=== PATIENT | female | born 2000 | race Caucasian/White ===

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

== ENCOUNTER 2021-02-27 14:08 | Outpatient (CLI) | payer MEDICAID ==
--- NOTE | 2021-02-27 18:04 | Ultrasound Report ---
PROCEDURE: OB First Trimester w/TV INDICATIONS: positive test OUTSIDE/PRIOR DATING DATA: Last menstrual period (LMP): 01/03/2021. LMP-based estimated date of delivery (ARIELLA): 10/10/2021. First dating scan (date and location): 02/27/2021. Estimated date of delivery (ARIELLA) from first dating scan: 10/08/2021. TECHNIQUE: Real-time scanning was performed of the fetus and maternal pelvic organs, with image documentation. Endovaginal scanning was also performed to better visualize the fetus and maternal ovaries. COMPARISON: None. FINDINGS: Embryo: Single living intrauterine fetus is present with a crown-rump length measuring 1.68 cm, 8 we eks 1 day. heart rate measures 169 bpm. There are multiple small perigestational hemorrhages me asuring 14 x 8 x 6 mm and 11 x 4 x 8 mm Measurement variability in dating: +/- 4 weeks by LMP, +/- 7 days by mean sac diameter (use before 6 weeks gestation if crown-rump length not able to be measured), +/- 5 days by crown-rump length (6-12 weeks gestation). Maternal organs: bilateral ovarian follicles are seen measuring 32 x 18 x 22 mm on the left and 23 x 14 x 16 mm on the right. IMPRESSION: Single living intrauterine fetus with a gestational age measuring 8 weeks and 1 day with an ARIELLA of , concordant with LMP as above. Multiple perigestational bleeds Reviewed by: Nikita Dawkins MD on 02/27/2021 6:03 PM PDT Approved by: Nikita Dawkins MD on 02/27/2021 6:03 PM PDT Station ID: [id number]
== END 2021-02-27 14:09 | disposition home or self-care (01) ==
LOC: DI 14:08
PROVIDERS: ATTEND Obstetrics & Gynecology
DX: O20.8 Other hemorrhage in early pregnancy (principal); Z3A.08 8 weeks gestation of pregnancy

== ENCOUNTER 2021-03-06 08:00 | Outpatient (CLI) | payer MEDICAID ==
[2021-03-06 21:35] LABS: CHLAMYDIA TRACHOMATIS DNA NEGATIVE (NEGATIVE); NEISSERIA GONORRHOEAE DNA NEGATIVE (NEGATIVE); TRICHOMONAS VAGINALIS DNA NEGATIVE (NEGATIVE)
== END 2021-03-06 23:59 | disposition home or self-care (01) ==
LOC: LAB.WC 08:00
PROVIDERS: ATTEND Obstetrics & Gynecology
DX: Z11.3 Encounter for screening for infections with a predominantly sexual mode of transmission (principal)
CPT/HCPCS: 87491; 87591; 87661

== ENCOUNTER 2021-03-30 17:41 | Outpatient (CLI) | payer MEDICAID ==
[2021-03-30 19:44] LABS: BASOPHILS # (AUTO) 0.1 10^3/uL (0.0-0.1); BASOPHILS % (AUTO) 0.6 %; EOSINOPHILS # (AUTO) 0.1 10^3/uL (0.0-0.7); EOSINOPHILS % (AUTO) 1.3 %; HGB - HEMOGLOBIN 11.9 g/dL (12.0-16.0); LYMPHOCYTES # (AUTO) 3.3 10^3/uL (1.5-3.5); LYMPHOCYTES % (AUTO) 34.2 %; MEAN CORPUSCULAR HEMOGLOBIN 29.2 pg (27.0-31.0); MEAN CORPUSCULAR HGB CONC 33.1 g/dL (32.0-36.0); MEAN CORPUSCULAR VOLUME 88.2 fL (81.0-99.0); MEAN PLATELET VOLUME 8.8 fL (7.9-10.8); MONOCYTES # (AUTO) 0.6 10^3/uL (0.0-1.0); MONOCYTES % (AUTO) 6.6 %; NEUTROPHILS # (AUTO) 5.6 10^3/uL (1.5-6.6); NEUTROPHILS % (AUTO) 57.1 %; PLT - PLATELET COUNT 320 10^3/uL (130-450); RED BLOOD COUNT 4.08 10^6/uL (4.20-5.40); RED CELL DISTRIBUTION WIDTH 13.2 % (12.0-15.0); WHITE BLOOD COUNT 9.7 x10^3/uL (4.8-10.8)
[2021-04-01 12:17] LABS: HEPATITIS B SURFACE ANTIGEN NON-REACTIVE (NON-REACTIVE)
[2021-04-01 12:19] LABS: HEPATITIS C ANTIBODY NON-REACTIVE (NON-REACTIVE)
[2021-04-01 15:06] LABS: HIV AG/AB 4TH GEN NON-REACTIVE (NON-REACTIVE)
[2021-04-02 14:31] LABS: HSV 2 IGG TYPE SPECIFIC AB <0.90 index
== END 2021-03-30 17:42 | disposition home or self-care (01) ==
LOC: LAB 17:41
PROVIDERS: ATTEND Obstetrics & Gynecology
DX: Z36.89 Encounter for other specified antenatal screening (principal)
CPT/HCPCS: 36415; 81220; 81243; 81329; 81599; 85025; 86592; 86695; 86696; 86762; 86787; 86803; 86850; 86900; 86901; 87340; 87389

== ENCOUNTER 2021-04-03 08:00 | Outpatient (CLI) | payer MEDICAID ==
[2021-04-03 14:56] LABS: MUDS CUTOFF CONCENTRATIONS CUTOFF CONC BELOW:
[2021-04-03 15:00] LABS: BILIRUBIN,URINE NEGATIVE (NEGATIVE); GLUCOSE, URINE (UA) NEGATIVE (NEGATIVE); KETONES,URINE (UA) NEGATIVE (NEGATIVE); LEUKOCYTE ESTERASE, URINE NEGATIVE (NEGATIVE); NITRITE,URINE NEGATIVE (NEGATIVE); OCCULT BLOOD,URINE NEGATIVE (NEGATIVE); PH,URINE 6.5 PH (5.0-7.5); PROTEIN,URINE NEGATIVE (NEGATIVE); UROBILINOGEN,URINE 0.2 (NORMAL) E.U./dL (NORMAL)
[2021-04-03 15:03] LABS: CLARITY,URINE CLEAR (CLEAR)
[2021-04-03 15:06] LABS: BACTERIA,URINE Few /HPF (None Seen); MUCUS,URINE Marked Strands; RBC,URINE 0-5 /HPF (0-5); SQUAMOUS EPITHELIAL CELL,UR MOD Squamous (<= Few); WBC,URINE 0-3 /HPF (0-5)
[2021-04-03 15:09] LABS: AMPHETAMINE SCREEN,URINE NEGATIVE (NEGATIVE); BARBITURATE SCREEN,UR NEGATIVE (NEGATIVE); BENZODIAZEPINES SCREEN, URINE NEGATIVE (NEGATIVE); COCAINE SCREEN URINE NEGATIVE (NEGATIVE); METHADONE SCREEN, URINE NEGATIVE (NEGATIVE); METHAMPHETAMINES SCREEN, URINE NEGATIVE (NEGATIVE); OPIATE SCREEN, URINE NEGATIVE (NEGATIVE); OXYCODONE SCREEN, URINE NEGATIVE (NEGATIVE); PROPOXYPHENE SCREEN, URINE NEGATIVE (NEGATIVE); THC CANNABINOID SCREEN, URINE NEGATIVE (NEGATIVE); TRICYCLIC ANTIDEPRESSANT,URINE NEGATIVE (NEGATIVE)
== END 2021-04-03 23:59 | disposition home or self-care (01) ==
LOC: LAB.WC 08:00
PROVIDERS: ATTEND Obstetrics & Gynecology
DX: Z36.89 Encounter for other specified antenatal screening (principal)
CPT/HCPCS: 80306; 81001; 87086

== ENCOUNTER 2021-07-30 10:53 | Outpatient (CLI) | payer MEDICAID ==
[2021-07-30 12:38] VITALS: BP 127/79
--- NOTE | 2021-07-31 15:29 | PROCEDURE REPORT ---
- HPI Current EDU 10/10/21 Gestation 29 Weeks and 5 Days 2 Para 0 Vital Signs Temperature 99.0 F 07/30/21 11:13 Heart Rate 92 07/30/21 11:13 Respiratory Rate 16 07/30/21 11:13 Blood Pressure 121/79 07/30/21 11:13 Temperature 99.0 F 07/30/21 11:13 Heart Rate 88 07/30/21 11:13 Respiratory Rate 16 07/30/21 11:13 Blood Pressure 127/79 07/30/21 11:13 O2 Saturation - NST Procedure NST Procedure Start Date 07/30/21 Start Time 11:00 Stop Time 11:37 Vibroacoustic Stimulation Used No Patient States Movement No: not since yesterday EFM 125 mod floyd 15x15 accels no decels TOCO: quiet - Results and Plan Findings/Impression: Patient is a 21 yo at 29+5 wga here with decreased movement EFM is Category I Reassured patient and reviewed warning signs FU with routine OB care DX: IUP at 29+5 wga Decreased FM DOS: 07/30/21 NST read 07/30/21
== END 2021-07-30 11:40 | disposition home or self-care (01) ==
LOC: WFO 10:53 → FBP 10:54 → WFO 11:40
PROVIDERS: ATTEND Obstetrics & Gynecology
DX: O36.8130 Decreased fetal movements, third trimester, not applicable or unspecified (principal); Z3A.29 29 weeks gestation of pregnancy
CPT/HCPCS: 36415; 59025; 82950; 85027; 99211; 99214

== ENCOUNTER 2021-07-30 11:59 | Outpatient (CLI) | payer MEDICAID ==
[2021-07-30 13:19] LABS: HCT - HEMATOCRIT 33.5 % (37.0-47.0); MEAN CORPUSCULAR HEMOGLOBIN 28.1 pg (27.0-31.0); MEAN CORPUSCULAR HGB CONC 32.8 g/dL (32.0-36.0); MEAN CORPUSCULAR VOLUME 85.5 fL (81.0-99.0); MEAN PLATELET VOLUME 9.1 fL (7.9-10.8); RED BLOOD COUNT 3.92 10^6/uL (4.20-5.40); RED CELL DISTRIBUTION WIDTH 12.9 % (12.0-15.0); WHITE BLOOD COUNT 8.8 x10^3/uL (4.8-10.8)
== END 2021-07-30 12:00 | disposition home or self-care (01) ==
LOC: LAB 11:59
PROVIDERS: ATTEND Obstetrics & Gynecology
DX: Z34.90 Encounter for supervision of normal pregnancy, unspecified, unspecified trimester (principal)
CPT/HCPCS: 36415; 82950; 85027

== ENCOUNTER 2021-08-15 14:02 | Outpatient (CLI) | payer MEDICAID ==
--- NOTE | 2021-08-16 15:58 | Ultrasound Report ---
PROCEDURE: OB Detailed Eval INDICATIONS: SUPERVISION OF NORMAL OUTSIDE/PRIOR DATING DATA: Last menstrual period (LMP): 01/03/2021. LMP-based estimated date of delivery (ARIELLA): 10/10/2021. First dating scan (date and location): 02/27/2021. Estimated date of delivery (ARIELLA) from first dating scan: 10/08/2021. The below data below was generated using the ultrasound ARIELLA of 10/08/2021 TECHNIQUE: Real-time scanning was performed of the fetus, with image documentation and biometric measurements. COMPARISON: 02/27/2021 FINDINGS: General: A single live intrauterine gestation is present. Presentation: Vertex Placenta: Placental position is left posterior, without previa. Amniotic fluid index: 12.8 cm, within normal limits for gestational age. heart rate: 136 beats per minute. Maternal cervical canal: 4.4 cm long; normal length is 2.5 cm or more. biometrics: Biparietal diameter: 7.4 cm equals 29 weeks 4 days Head circumference: 28.4 cm equals 31 weeks 1 day Abdominal circumference: 30.4 cm equals 34 weeks 2 days Femur length: 6.1 cm equals 31 weeks 4 days Estimated gestational age from initial scan: 32 weeks 2 days Composite gestational age from present scan: 32 weeks 0 days Estimated weight and percentile: 2040 g, 54th percentile Measurement variability in biometric dating: +/- 10 days from 12-20 weeks gestation, +/- 2 weeks from 20-30 weeks gestation, +/- 3 weeks at 30 weeks gestation or later. Anatomic survey: Neuro: Ventricles are normal at less than 10 mm. Cisterna magna is normal at 3-11 mm. Cerebellum i s normal in size and morphology. Nuchal skin fold: Normal at less than 6 mm between 14 and 20 weeks gestational age. Face: Nose and lips, facial profile are normal. Spine: No evidence for spina bifida. Heart: 4-chambered heart is present, with normal ventricular outflow tracts. Diaphragm: Diaphragm is intact. Stomach: Left-sided stomach is present. Kidneys: No hydronephrosis. Normal is less than 5 mm in 2nd trimester, less than 7 mm in 3rd trimester. Cord: 3 vessel cord has orthotopic insertion. Bladder: Normal in size. Extremities: All 4 extremities are visualized. These images are suboptimal, secondary to the late gestation. IMPRESSION: No anatomic abnormality is identified. Normal interval growth compared to the prior ultrasound examination. Please note that the biparietal diameter is at the 0.6 percentile and the head circumference is 3rd p ercentile. Reviewed by: Ricki Morfin MD on 08/16/2021 2:57 PM BARBRA Approved by: Ricki Morfin MD on 08/16/2021 2:57 PM BARBRA Station ID: [id number]
== END 2021-08-15 14:03 | disposition home or self-care (01) ==
LOC: DI 14:02
PROVIDERS: ATTEND Obstetrics & Gynecology
DX: Z34.93 Encounter for supervision of normal pregnancy, unspecified, third trimester (principal); Z3A.32 32 weeks gestation of pregnancy

== ENCOUNTER 2021-08-21 08:22 | Outpatient (CLI) | payer MEDICAID | END 2021-08-21 08:23 | disposition home or self-care (01) | LOC: LAB 08:22 | PROVIDERS: ATTEND Obstetrics & Gynecology | DX: O99.810 Abnormal glucose complicating pregnancy (principal); Z53.9 Procedure and treatment not carried out, unspecified reason | CPT/HCPCS: 82951; 82952 ==

== ENCOUNTER 2021-09-12 08:00 | Outpatient (CLI) | payer MEDICAID | END 2021-09-12 23:59 | disposition home or self-care (01) | LOC: LAB.WC 08:00 | PROVIDERS: ATTEND Obstetrics & Gynecology | DX: Z34.90 Encounter for supervision of normal pregnancy, unspecified, unspecified trimester (principal); Z36.85 Encounter for antenatal screening for Streptococcus B | CPT/HCPCS: 87797 ==

== ENCOUNTER 2021-09-12 12:19 | Outpatient (CLI) | payer MEDICAID ==
[2021-09-12 12:53] LABS: HCT - HEMATOCRIT 32.8 % (37.0-47.0); HGB - HEMOGLOBIN 10.2 g/dL (12.0-16.0); MEAN CORPUSCULAR HEMOGLOBIN 26.2 pg (27.0-31.0); MEAN CORPUSCULAR HGB CONC 31.1 g/dL (32.0-36.0); MEAN CORPUSCULAR VOLUME 84.1 fL (81.0-99.0); MEAN PLATELET VOLUME 9.8 fL (7.9-10.8); RED BLOOD COUNT 3.9 10^6/uL (4.20-5.40); RED CELL DISTRIBUTION WIDTH 14.7 % (12.0-15.0); WHITE BLOOD COUNT 8.2 x10^3/uL (4.8-10.8)
[2021-09-12 13:02] LABS: ALBUMIN 2.5 g/dL (3.2-5.5); ALBUMIN/GLOBULIN RATIO 0.6 (1.0-2.2); BILIRUBIN,TOTAL 0.4 mg/dL (0.2-1.0); CREATININE 0.4 mg/dL (0.4-1.0); POTASSIUM 3.6 mmol/L (3.5-5.0); TOTAL PROTEIN 6.8 g/dL (6.7-8.2)
[2021-09-12 14:55] LABS: CREATININE,URINE 239.3 mg/dL; PROTEIN/CREATININE RATIO,URINE 0.3 (<=0.2)
[2021-09-15 15:11] LABS: CHOLIC ACID 19.1 umol/L (< OR = 1.8); DEOXYCHOLIC ACID 4.4 umol/L (< OR = 2.4); TOTAL BILE ACIDS 31.4 umol/L (< OR = 6.8)
== END 2021-09-12 12:20 | disposition home or self-care (01) ==
LOC: LAB 12:19
PROVIDERS: ATTEND Obstetrics & Gynecology
DX: O99.891 Other specified diseases and conditions complicating pregnancy (principal); R03.0 Elevated blood-pressure reading, without diagnosis of hypertension; L29.9 Pruritus, unspecified; Z36.85 Encounter for antenatal screening for Streptococcus B
CPT/HCPCS: 36415; 80053; 82542; 82570; 84156; 85027; 87797

== ENCOUNTER 2021-09-17 14:10 | Outpatient (CLI) | payer MEDICAID ==
--- NOTE | 2021-09-17 15:28 | PROCEDURE REPORT ---
- HPI Diagnosis/Indication for NST: Other (Cholestasis of ) Current EDU 10/10/21 Gestation 36 Weeks and 5 Days 2 Para 0 Vital Signs Temperature 97.9 F 09/17/21 14:21 Heart Rate 88 09/17/21 14:21 Respiratory Rate 16 09/17/21 14:21 Blood Pressure 136/92 H 09/17/21 14:21 Temperature 97.9 F 09/17/21 14:28 Heart Rate 83 09/17/21 14:28 Respiratory Rate 16 09/17/21 14:28 Blood Pressure 136/92 H 09/17/21 14:28 O2 Saturation 99 09/17/21 14:28 - NST Procedure NST Procedure Start Date 09/17/21 Start Time 14:25 Vibroacoustic Stimulation Used No Patient States Movement Yes - Results and Plan Findings/Impression: 21-year-old G1 at 36 weeks 5 days he presents for scheduled NST secondary to history of gestational hypertension and cholestasis of Baseline-130 bpm Moderate variability Accelerations 15 x 15 No decelerations [place] irritability NST reactive a reassuring BPP 8 out of 8 with NST 10 out of 10
[2021-09-17 15:35] VITALS: BP 136/86
--- NOTE | 2021-09-17 16:27 | Ultrasound Report ---
PROCEDURE: OB Biophysical Profile INDICATIONS: cholestasis OUTSIDE/PRIOR DATING DATA: Last menstrual period (LMP): January 03, 2021. LMP-based estimated date of delivery (ARIELLA): October 10, 2021. First dating scan (date and location): [facility]; February 27, 2021. Estimated date of delivery (ARIELLA) from first dating scan: October 08, 2021. The below data below was generated using the ultrasound ARIELLA of October 08, 2021 TECHNIQUE: Real-time scanning was performed of the fetus, with image documentation and biometric eugenia surements. Biophysical profile was also obtained. COMPARISON: Reference is made to prior studies dated February 27, 2021. FINDINGS: General: A single living intrauterine gestation is present. Presentation: Vertex Placenta: Placental position is the posterior, without previa. Amniotic fluid index: 12.7 cm, appropriate for gestational age. heart rate: 1-25 beats per minute. Maternal cervical canal: Not imaged. Biophysical profile: Tone: 2 points. Movement: 2 points. Respiration: 2 points. Largest pocket of fluid: 2 points. Umbilical artery Doppler RI: Up to 2.85 at the placenta. IMPRESSION: 1.Live single intrauterine gestation as detailed above. Reviewed by: Lewis Padilla MD on 09/17/2021 4:25 PM PST Approved by: Lewis Padilla MD on 09/17/2021 4:25 PM PST Station ID: [id number]
== END 2021-09-17 15:40 | disposition home or self-care (01) ==
LOC: WFO 14:10 → FBP 14:12 → WFO 15:40
PROVIDERS: ATTEND Obstetrics & Gynecology
DX: O13.3 Gestational [pregnancy-induced] hypertension without significant proteinuria, third trimester (principal); O26.613 Liver and biliary tract disorders in pregnancy, third trimester; K83.1 Obstruction of bile duct; Z3A.36 36 weeks gestation of pregnancy
CPT/HCPCS: 59025

== ENCOUNTER 2021-09-19 07:45 | Inpatient (IN) | payer MEDICAID ==
[2021-09-19] MEDS ORDERED: SODIUM CHLORIDE FLUSH 0.9% 10 ML SYRINGE IVP PRN (08:45)
[2021-09-19] MEDS ORDERED: LIDOCAINE-MPF 1% 30 ML VIAL ID PRN (08:45)
[2021-09-19] MEDS ORDERED: METHYLERGONOVINE 0.2 MG/ML VIAL IM PRN (08:45)
[2021-09-19] MEDS ORDERED: miSOPROStoL 200 MCG TABLET BC PRN (08:45)
[2021-09-19] MEDS ORDERED: CARBOPROST TROMETHAMINE 250 MCG/ML AMP IM PRN (08:45)
[2021-09-19] MEDS ORDERED: OXYTOCIN/SODIUM CHLORIDE 500 ML IV PRN (08:45)
[2021-09-19] MEDS ORDERED: OXYTOCIN 10 UNIT/ML VIAL IM PRN (08:45)
[2021-09-19] MEDS ORDERED: TRANEXAMIC ACID IN NACL 1,000 MG/100 ML BAG IV PRN (08:45)
[2021-09-19] MEDS ORDERED: SODIUM CHLORIDE FLUSH 0.9% 10 ML SYRINGE IVP SCH (09:00)
[2021-09-19] MEDS ORDERED: NALBUPHINE 10 MG/ML AMP IVP PRN ×2 (09:53→20:35)
[2021-09-19] MEDS ORDERED: miSOPROStoL 100 MCG TABLET VG SCH (10:00)
--- NOTE | 2021-09-19 10:02 | HISTORY & PHYSICAL EXAMINATION ---
Admit History - Visit Reason Visit Reason: Other (Scheduled induction of labor) - : 2 Parity: 0 : 1 Risk/History: positive: Gestational diabetes Complications This : positive: Gestational diabetes, Other (gestational diabetes, Cholestasis of ) Smoking Status: Never smoker - Mother's Labs Mother's Blood Type: positive: O Mother's RH: positive: Positive GBS: positive: Group B Step Negative Rubella Status: positive: Immune - Other Maternal History Other Maternal History: RPR negative, HSV + Meds/Allgy - Home Medications Home Medications: Ambulatory Orders Medication Instructions Recorded Confirmed No Known Home Medications 06/14/13 01/29/16 - Allergies Allergies/Adverse Reactions: Allergies Allergy/AdvReac Type Severity Reaction Status Date / Time No Known Drug Allergies Allergy Verified 01/29/16 19:15 Review of Systems - Gastrointestinal Gastrointestinal: denies: Abdominal pain Physical - Abdominal Exam Vital Signs: Last Vital Signs Temp 98.1 F 09/19/21 08:30 Pulse 82 09/19/21 08:30 Resp 18 09/19/21 08:30 BP 132/86 H 09/19/21 08:30 Pulse Ox 99 09/19/21 08:15 : none Uterine Resting Tone: positive: Soft - Monitoring Heart Rate Baseline: 140 bpm Strip Review: positive: Category I - Presentation Presentation: positive: Vertex - Vaginal Exam Membranes: positive: Membranes intact Dilation (in cm): 1 Effacement (%): 50 Station: positive: -2 Cervical Position: positive: Midposition Plan for Labor - Plan For Labor Plan for Labor: 21-year-old G2, P0 at 37 weeks 0 days admitted for induction of labor secondary to cholestasis of , gestational hypertension and gestational diabetes. 1. Cholestasis of pregnancybile acids of 30 on last exam. Patient taking ursodiol. 2. Gestational hypertensionpatient with moderate blood pressures on multiple clinic visits. Preeclampsia labs within normal limits previously, will recheck today. Blood pressure is currently within normal limits. 3. Gestational diabetes- Elevated 1 hour, patient reports she was not able to tolerate 2-hour. She has been doing fingerstick blood glucose and reports fingersticks in the 120s. Will monitor fingersticks in labor. We discussed risk of shoulder dystocia given diabetes, patient expressed understanding. 4. HSV- No active lesions, on acyclovir Induction of labor-SVE 1 thick and high Prieto bulb placed using sterile technique. Plan for Pitocin following cervical ripening
[2021-09-19 10:19] LABS: BASOPHILS # (AUTO) 0.1 10^3/uL (0.0-0.1); BASOPHILS % (AUTO) 0.7 %; EOSINOPHILS # (AUTO) 0.1 10^3/uL (0.0-0.7); EOSINOPHILS % (AUTO) 0.9 %; HCT - HEMATOCRIT 33.5 % (37.0-47.0); HGB - HEMOGLOBIN 10.5 g/dL (12.0-16.0); LYMPHOCYTES # (AUTO) 2.7 10^3/uL (1.5-3.5); LYMPHOCYTES % (AUTO) 27.8 %; MEAN CORPUSCULAR HEMOGLOBIN 26.3 pg (27.0-31.0); MEAN CORPUSCULAR HGB CONC 31.3 g/dL (32.0-36.0); MEAN PLATELET VOLUME 10.3 fL (7.9-10.8); MONOCYTES # (AUTO) 0.7 10^3/uL (0.0-1.0); MONOCYTES % (AUTO) 6.9 %; NEUTROPHILS # (AUTO) 6.1 10^3/uL (1.5-6.6); NEUTROPHILS % (AUTO) 63.4 %; PLT - PLATELET COUNT 419 10^3/uL (130-450); RED BLOOD COUNT 3.99 10^6/uL (4.20-5.40); RED CELL DISTRIBUTION WIDTH 15.6 % (12.0-15.0); WHITE BLOOD COUNT 9.6 x10^3/uL (4.8-10.8)
[2021-09-19 11:31] LABS: ALBUMIN 2.7 g/dL (3.2-5.5); ALBUMIN/GLOBULIN RATIO 0.7 (1.0-2.2); BILIRUBIN,TOTAL 0.3 mg/dL (0.2-1.0); CALCIUM 9.1 mg/dL (8.5-10.3); CREATININE 0.4 mg/dL (0.4-1.0); POTASSIUM 3.6 mmol/L (3.5-5.0); TOTAL PROTEIN 6.8 g/dL (6.7-8.2)
[2021-09-19] MEDS ORDERED: INSULIN REGULAR HUMAN 300 UNIT/3 ML VIAL SUBQ PRN (11:32)
[2021-09-19 11:54] LABS: CREATININE,URINE 231.6 mg/dL; PROTEIN/CREATININE RATIO,URINE 0.2 (<=0.2)
[2021-09-19] MEDS ORDERED: OXYTOCIN/SODIUM CHLORIDE 500 ML IV SCH (16:00)
[2021-09-19] MEDS: LACTATED RINGERS 1,000 ML IV SCH ×2 (16:20→21:45)
--- NOTE | 2021-09-19 18:31 | PROVIDER PROGRESS NOTE ---
Labor Progress Note - Uterine Monitoring Uterine Monitoring Mode: positive: External toco Contraction Frequency (min/apart): 1-2 - Monitoring Monitor Mode: positive: External ultrasound Heart Rate Baseline: 120 BPM Heart Rate Variability: positive: Moderate (6-25 bmp) Accelerations: positive: Present, 15x15 Decelerations: positive: None Strip Review: positive: Category I - Vaginal Exam Dilation (in cm): 5 Effacement (%): 50 Station: -2 Cervical Position: Midposition - Labor Progress Note Labor Progress Note/Additional Text: S- Patient reports some discomfort with contractions which she is overall comfortable. OSVE 550/-2 External monitoring reactive and reassuring positive accelerations. a/p: 21-year-old G2, P0 at 37 weeks 0 days admitted for induction of labor secondary to cholestasis of , gestational hypertension and gestational diabetes. #Induction of labor-s/p Prieto bulb, SVE 50/-2, Pitocin in progress. # Cholestasis of pregnancybile acids of 30 on last exam. Patient taking ursodiol. # Gestational hypertensionpatient with moderate blood pressures on multiple clinic visits. Preeclampsia labs within normal limits. Blood pressure normal to mild range # Gestational diabetes- Elevated 1 hour, patient reports she was not able to tolerate 2-hour. She has been doing fingerstick blood glucose and reports fingersticks in the 120s. Will monitor fingersticks in labor. Sliding scale ordered. We discussed risk of shoulder dystocia given diabetes, patient expressed understanding. FSBG wnl # HSV- No active lesions, on acyclovir
[2021-09-19] MEDS ORDERED: ROPIVACAINE 0.2% 200 MG/100 ML BAG EP ONE (20:03)
[2021-09-19] MEDS ORDERED: ONDANSETRON 4 MG/2 ML VIAL IVP PRN (20:35)
[2021-09-19] MEDS ORDERED: diphenhydrAMINE INJ 50 MG/ML VIAL IVP PRN (20:35)
[2021-09-19] MEDS ORDERED: ROPIVACAINE 0.2% 200 MG/100 ML BAG EP PRN (20:35)
--- NOTE | 2021-09-19 20:35 | ANESTHESIA ---
Pre-Anesthesia VS, & Labs - Diagnosis active labor - Procedure labor epidural Vital Signs: Temp Pulse Resp BP Pulse Ox 36.8 C 82 18 132/86 H 99 09/19/21 13:55 09/19/21 08:30 09/19/21 08:30 09/19/21 08:30 09/19/21 08:15 Height: 4 ft 11 in Weight (kg): 76.204 kg Body Mass Index: 33.9 BMI Classification: Obese - NPO Other (at dinner around 6pm) - Is Patient ?: Yes - Lab Results Current Lab Results: Laboratory Tests 09/19/21 10:27: Blood Type O POSITIVE, Antibody Screen NEGATIVE 09/19/21 09:30: Sodium 135, Potassium 3.6, Chloride 104, Carbon Dioxide 21, Anion Gap 10.0, BUN 11, Creatinine 0.4, Estimated GFR (MDRD) 201, Glucose 77, Calcium 9.1, Total Bilirubin 0.3, AST 25, ALT 16, Alkaline Phosphatase 330 H, Total Protein 6.8, Albumin 2.7 L, Globulin 4.1, Albumin/Globulin Ratio 0.7 L 09/19/21 09:30: WBC 9.6, RBC 3.99 L, Hgb 10.5 L, Hct 33.5 L, MCV 84.0, MCH 26.3 L, MCHC 31.3 L, RDW 15.6 H, Plt Count 419, MPV 10.3, Neut # (Auto) 6.1, Lymph # (Auto) 2.7, [place] # (Auto) 0.7, Eos # (Auto) 0.1, Baso # (Auto) 0.1, Absolute N ucleated RBC 0.00, Nucleated RBC % 0.0 Fish Bones: 09/19/21 09:30 09/19/21 09:30 Home Medications and Allergies Active Medications Carboprost Tromethamine (Carboprost Tromethamine 250 Mcg/Ml Amp) 250 mcg IM Q15M PRN PRN Reason: Step 4: Hemorrhage protocol Stop: 09/24/21 08:47 Lactated Ringer's (Lr) 1,000 mls @ 100 mls/hr IV .Q10H PAZ Last Admin: 09/19/21 16:20 Dose: 100 mls/hr Documented by: Oxytocin/Sodium Chloride (Pitocin/Sodium Chloride) 500 mls @ 999 mls/hr IV PRN PRN; Protocol PRN Reason: POST- HEMORR PREVENTION Stop: 09/24/21 08:47 Tranexamic Acid (Tranexamic 1,000 Mg/100ml-Nacl) 1,000 mg in 100 mls @ 600 mls/hr IV .ONCE PRN PRN Reason: EBL >1200mL and within 3hr Stop: 09/24/21 08:47 Oxytocin/Sodium Chloride (Pitocin/Sodium Chloride) 500 mls @ 2 mls/hr IV TITR PAZ; Protocol Last Admin: 09/19/21 16:24 Dose: 2 milliunit/min, 2 mls/hr Documented by: Insulin Human Regular (Insulin Regular Human 300 Unit/3 Ml Vial) 2 - 8 unit SUBQ PRN PRN PRN Reason: BG >/140 Lidocaine HCl (Lidocaine-Mpf 1% 30 Ml Vial) 30 ml ID .ONCE PRN PRN Reason: PERINEAL REPAIR Stop: 09/24/21 08:47 Methylergonovine Maleate (Methylergonovine 0.2 Mg/Ml Vial) 0.2 mg IM .ONCE PRN PRN Reason: Step 2: Hemorrhage protocol Stop: 09/24/21 08:47 Misoprostol (Misoprostol 200 Mcg Tablet) 800 mcg BC .ONCE PRN PRN Reason: Step 3: Hemorrhage protocol Stop: 09/24/21 08:47 Nalbuphine HCl (Nalbuphine 10 Mg/Ml Amp) 5 mg IVP Q4HR PRN PRN Reason: Labor Pain Oxytocin (Oxytocin 10 Unit/Ml Vial) 10 unit IM .ONCE PRN PRN Reason: Step one: If no IV access Stop: 09/24/21 08:47 Sodium Chloride (Sodium Chloride Flush 0.9% 10 Ml Syringe) 10 ml IVP 0100,0900,1700 [facility] Sodium Chloride (Sodium Chloride Flush 0.9% 10 Ml Syringe) 10 ml IVP PRN PRN PRN Reason: NEEDED PER PROVIDER ORDERS Last Admin: 09/19/21 16:21 Dose: 10 ml Documented by: No Known Home Medications 06/14/13 Allergies/Adverse Reactions: Allergies Allergy/AdvReac Type Severity Reaction Status Date / Time No Known Drug Allergies Allergy Verified 01/29/16 19:15 Anes History & Medical History - Anesthetic History Anesthesia Complications: reports: No previous complications Family history of Anesthesia Complications: Denies Family history of Malignant Hyperthermia: Denies - Medical History Cardiovascular: reports: Other (gestational HTN) Gastrointestinal: reports: Cholelithiasis Endocrine/Autoimmune: reports: Other (gestational DM) Smoking Status: Never smoker - Obstetrical History : 2 Parity: 0 Events: reports: Gestational diabetes Complications: reports: Gestational diabetes, Other (gestational diabetes, Cholestasis of ) Exam General: Alert, Oriented x3, Cooperative Dental: WNL Mouth Openin Fingerbreadth Mallampati classification: III Thyromental Distance: 4-6 cm Respiratory: Lungs clear Cardiovascular: Regular rate Plan Anesthesia Type: Epidural Consent for Procedure(s) Verified and Reviewed: Yes Code Status: Attempt Resuscitation ASA classification: 2-Mild systemic disease Is this case an emergency?: No
--- NOTE | 2021-09-19 20:45 | ANESTHESIA PROCEDURE NOTE ---
Anesthesia Epidural Template - Patient Report Patient Reports: positive: Pain controlled - Plan Plan: positive: Continue current management
[2021-09-19] MEDS ORDERED: ePHEDrine 50 MG/ML VIAL IVP ONE (21:07)
--- NOTE | 2021-09-19 21:35 | PROVIDER PROGRESS NOTE ---
Labor Progress Note - Uterine Monitoring Uterine Monitoring Mode: positive: External toco - Monitoring Monitor Mode: positive: External ultrasound Heart Rate Variability: positive: Moderate (6-25 bmp) Accelerations: positive: Present, 15x15 Decelerations: positive: Late, Intermittent (<50% x20 min) Strip Review: positive: Category II - Vaginal Exam Dilation (in cm): 5( on exam by RN) - Labor Progress Note Labor Progress Note/Additional Text: Called to see patient for late decelerations noted following epidural. Blood pressures were noted to be in the 110/60-70's which is less than her baseline of 130-140/80's. Decelerations resolved with position change, fluid bolus and O2. Pitocin turned off. Now with moderate variability accelerations and no decelerations noted. Currently category 1 tracing.
[2021-09-20] MEDS: LACTATED RINGERS 1,000 ML IV SCH ×2 (04:10→13:23)
[2021-09-20] MEDS ORDERED: LIDOCAINE-MPF 2% 5 ML VIAL ONE ×4 (08:42→17:48)
[2021-09-20] MEDS ORDERED: SODIUM CHLORIDE 0.9% 10 ML VIAL IVP ONE ×4 (08:43→17:48)
[2021-09-20] MEDS ORDERED: fentaNYL 100 MCG/2 ML VIAL ONE ×4 (08:43→20:09)
--- NOTE | 2021-09-20 11:03 | PROVIDER PROGRESS NOTE ---
Labor Progress Note - Uterine Monitoring Uterine Monitoring Mode: positive: External toco (Patient reports pain with cont ractions. Anesthesia to assess.) Contraction Frequency (min/apart): 1-2 Uterine Resting Tone: positive: Soft - Monitoring Monitor Mode: positive: Spiral electrode Heart Rate Variability: positive: Moderate (6-25 bmp) Accelerations: positive: Present, 15x15 Decelerations: positive: Late, Intermittent (<50% x20 min) Strip Review: positive: Category II - Vaginal Exam Dilation (in cm): 4 Effacement (%): 75 Station: -2 Cervical Position: Midposition - Labor Progress Note Labor Progress Note/Additional Text: a/p: 21-year-old G2, P0 at 37 weeks 0 days admitted for induction of labor secondary to cholestasis of , gestational hypertension and gestational diabetes. #Induction of labor-s/p Prieto bulb, SVE /-1, Pitocin in progress. AROM with light meconium noted. Approximately 30 minutes after rupture of membranes patient was initially noted to have early decelerations and then began to have intermittent late decelerations. She was repositioned in oxygen given. FSE was placed. Positive scalp stem was noted. Her strip returned to category 1. # Cholestasis of pregnancybile acids of 30 on last exam. Patient taking ursodiol. # Gestational hypertensionpatient with moderate blood pressures on multiple clinic visits. Preeclampsia labs within normal limits. Blood pressure normal to mild range # Gestational diabetes- Elevated 1 hour, patient reports she was not able to tolerate 2-hour. She has been doing fingerstick blood glucose and reports fingersticks in the 120s. Will monitor fingersticks in labor. Sliding scale ordered. We discussed risk of shoulder dystocia given diabetes, patient expressed understanding. FSBG wnl # HSV- No active lesions, on acyclovir
--- NOTE | 2021-09-20 11:32 | ANESTHESIA PROCEDURE NOTE ---
Anesthesia Epidural Template - Patient Report Patient Reports: positive: Inadequate control - Exam Epidural Medication Information: Epidural Medications Medication Ropivacaine 0.2% Continuous Infusion Rate (mL/ 10 hr) - Plan Plan: positive: Other - Other Comments Other Comments: Call to room for uncontrolled pain with contractions following AROM. Previous epidural bolus appeared effective for patient around 0830. Lidocaine 2% 5cc with 5cc 0.9% dosed. Pt able to fully move B LE and sensation intact after 7 mins. Contraction pain not improving. Patient elected for replacement follwoing discussion. Pt to sitting, L3-4 prepped, drap. Lido 1% 3cc at site, 17ga Tu to 8cm COLIN. Cath threaded to 15. Negative test@1111. Load @1113 with 10cc 0.2% Ropi. To supine after tegaderm and dressing tape. Pump @[id number] mins. Patient with emesis following loading dose but states her legs are getting very warm and tingly. Will continue to assess and follow patient.
[2021-09-20] MEDS ORDERED: TERBUTALINE 1 MG/ML VIAL SUBQ ONE ×2 (11:35→11:38)
--- NOTE | 2021-09-20 12:16 | MISCELLANEOUS PROVIDER NOTE ---
Miscellaneous Provider Note - - Note: Patient with prolonged deceleration to 70 bpm. Lasting for 4 minutes. Patient repositioned, fluid bolus started on oxygen per facemask. Returned to baseline of 120s with accelerations. SVE remains unchanged at 4 cm. The patient did have a second epidural placement due to suboptimal pain control. She had hypotension following epidural and required ephedrine. She was also noted to have tachysystole. Terbutaline was given. Strip is now returned to category 1.
--- NOTE | 2021-09-20 15:42 | CONSULTATION NOTE ---
Consultation Report: Called for pain. Pt not having contractions at this time. States a R sided pain. Epidural dosed with 8cc 1% Lidocaine and 2cc fentanyl (100mcg). States good relief of pain after dosing. VSS t/o.
[2021-09-20] MEDS ORDERED: ACETAMINOPHEN 325 MG TABLET PO ONE (16:22)
[2021-09-20] MEDS ORDERED: MORPHINE PF 5 MG/10 ML VIAL ONE (18:20)
[2021-09-20] MEDS ORDERED: ceFAZolin 1 GM VIAL ONE (18:22)
[2021-09-20] MEDS ORDERED: OXYTOCIN 10 UNIT/ML VIAL ONE (18:23)
[2021-09-20] MEDS ORDERED: PHENYLEPHRINE 10 MG/ML VIAL ONE (18:25)
--- NOTE | 2021-09-20 18:27 | MISCELLANEOUS PROVIDER NOTE ---
Miscellaneous Provider Note - - Note: Patient has remained essentially unchanged at 5 cm despite rupture of membranes and regular contractions. Cervix is 5/75/-1. The patient was initially offered a section but declined however she now with marked variability. Oxygen and fluid bolus started. Patient repositioned. I discussed the findings with the patient and recommend section for persistent category 2 tracing. The patient agrees with the plan. Her pain relief with epidural is up suboptimal at this time. Anesthesia has assessed her and recommends withdrawal of the epidural and will attempt spinal anesthesia in the OR. If spinal anesthesia is unsuccessful they will proceed with general anesthesia. We will proceed with primary section for persistent category 2 tracing. OR and anesthesia team notified. Consents obtained.
[2021-09-20] MEDS ORDERED: ONDANSETRON 4 MG/2 ML VIAL ONE (18:40)
[2021-09-20] MEDS ORDERED: SUCCINYLCHOLINE 200 MG/10 ML VIAL ONE ×2 (19:26→20:32)
[2021-09-20] MEDS ORDERED: HYDROmorphone 1 MG/ML CARPUJECT ONE ×2 (19:56→20:54)
[2021-09-20] MEDS ORDERED: DEXAMETHASONE 4 MG/ML VIAL ONE (19:59)
[2021-09-20] MEDS ORDERED: SODIUM CHLORIDE FLUSH 0.9% 10 ML SYRINGE IVP PRN (20:09)
[2021-09-20] MEDS ORDERED: LACTATED RINGERS 400 ML IV ONE (20:18)
[2021-09-20] MEDS ORDERED: MORPHINE 10 MG/ML VIAL IVP PRN (20:22)
[2021-09-20] MEDS ORDERED: MORPHINE 2 MG/ML CARPUJECT IVP PRN (20:27)
[2021-09-20] MEDS ORDERED: ATROPINE ABBOJECT 1 MG/10 ML SYRINGE IVP PRN (20:27)
[2021-09-20] MEDS ORDERED: fentaNYL 100 MCG/2 ML VIAL IVP PRN (20:27)
[2021-09-20] MEDS ORDERED: ePHEDrine 50 MG/ML VIAL IVP PRN (20:27)
[2021-09-20] MEDS ORDERED: METOCLOPRAMIDE 10 MG/2 ML VIAL IVP PRN (20:27)
[2021-09-20] MEDS ORDERED: ONDANSETRON 4 MG/2 ML VIAL IVP PRN (20:27)
[2021-09-20] MEDS ORDERED: NALOXONE 0.4 MG/ML VIAL IVP PRN (20:27)
--- NOTE | 2021-09-20 20:31 | DELIVERY NOTE ---
Delivery Note - Labor Labor: positive: Induced by oxytocin - Infant Delivery Method Delivery Method: positive: Primary - Cervical Ripening Method Cervical Ripening Method: positive: Balloon device - Presentation Presentation: positive: Vertex - Nuchal Cord Nuchal Cord: positive: None - Anesthetic Anesthetic Type: - Amniotic Fluid Description Amniotic Fluid Description: positive: Light meconium - Delivery Outcome Delivery Outcome: positive: Livebirth - [place] sex: positive: Male - Placenta Placenta: positive: Intact - Estimated Blood Loss Estimated Blood Loss (in cc): 500 - Delivery Comments (Free Text/Narrative) Delivery Comments (Free Text/Narrative): Patient was noted to have a persistently category 2 tracing with marked variability and variable decelerations. The decision was made to proceed with primary section. Following informed consent the patient was taken to the operating room. Epidural was not effective for pain control the therefore spinal anesthesia was attempted. This was unsuccessful and the decision was made to proceed with general anesthesia. The patient was placed in supine position and prepped and draped in the usual sterile fashion. General anesthesia was then initiated. A Pfannenstiel incision was made sharply with blade and taken down to the level of the fascia. The fascia was incised at the midline. The peritoneal cavity was entered bluntly using Colton Agrawal maneuver. A bladder blade was placed. A low transverse uterine incision was made. The incision was extended laterally and superiorly. The head was brought to the hysterotomy and the baby delivered cephalic. The cord was doubly clamped and cut and the baby passed on to the awaiting milk truck driver. A cord segment was obtained for cord gases. Cord blood was obtained. The placenta was delivered with fundal massage. The endometrial cavity was cleaned x2 using moist lap.The hysterotomy was closed using chromic suture in a continuous locking fashion. Areas of bleeding were reinforced using [id number] chromic suture. The peritoneal cavity was copiously irrigated and hemostasis noted. All instruments were removed. The fascia was closed using PDS suture. The skin was closed using rommel. The patient remained in stable condition. The patient was extubated and taken to the recovery room in stable condition. APGARS were noted to be 6 at 1 minute and 8 at 5 minutes.
--- NOTE | 2021-09-20 20:34 | OPERATIVE REPORT ---
Operative Report - General Admit Date: 09/19/21 Planned Procedure: Primary section Pre-Op Diagnosis: 37 weeks gestation, Gestational diabetes, gestational hypertension Procedure Performed: Primary section Post Op Diagnosis: Same - Procedure Note Primary Surgeon: Christo Acevedo MD Secondary Surgeon: Surgical-saige Sims CNM Anesthesia Technique: General ET tube Pathology: none Estimated Blood Loss (mL): 500 Urine Output (mL): 250 Indications: Category 2 tracing Findings: Normal appearing uterus, bilateral fallopian tubes and ovaries Complications: None - Other Other Information/Narrative: Patient was noted to have a persistently category 2 tracing with marked variability and variable decelerations. The decision was made to proceed with primary section. Following informed consent the patient was taken to the operating room. Epidural was not effective for pain control the therefore spinal anesthesia was attempted. This was unsuccessful and the decision was made to proceed with general anesthesia. The patient was placed in supine position and prepped and draped in the usual sterile fashion. General anesthesia was then initiated. A Pfannenstiel incision was made sharply with blade and taken down to the level of the fascia. The fascia was incised at the midline. The peritoneal cavity was entered bluntly using Colton Agrawal maneuver. A bladder blade was placed. A low transverse uterine incision was made. The incision was extended laterally and superiorly. The head was brought to the hysterotomy and the baby delivered cephalic. The cord was doubly clamped and cut and the baby passed on to the awaiting enterprise project manager. A cord segment was obtained for cord gases. Cord blood was obtained. The placenta was delivered with fundal massage. The endometrial cavity was cleaned x2 using moist lap.The hysterotomy was closed using chromic suture in a continuous locking fashion. Areas of bleeding were reinforced using [id number] chromic suture. The peritoneal cavity was copiously irrigated and hemostasis noted. All instruments were removed. The fascia was closed using PDS suture. The skin was closed using rommel. The patient remained in stable condition. The patient was extubated and taken to the recovery room in stable condition. APGARS were noted to be 6 at 1 minute and 8 at 5 minutes.
--- NOTE | 2021-09-20 20:45 | ANESTHESIA POST OP EVALUATION ---
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
[2021-09-20] MEDS: HYDROmorphone 0.5 MG/0.5 ML SYRINGE IVP PRN ×2 (20:49→20:58)
[2021-09-20] MEDS ORDERED: LACTATED RINGERS 1,000 ML IV SCH ×2 (21:00)
[2021-09-20] MEDS: oxyCODONE 5 MG TABLET PO PRN (23:34)
[2021-09-21] MEDS ORDERED: SODIUM CHLORIDE FLUSH 0.9% 10 ML SYRINGE IVP SCH (01:00)
[2021-09-21] MEDS: ACETAMINOPHEN 500 MG TABLET PO SCH ×3 (02:40→18:41)
[2021-09-21] MEDS: KETOROLAC 30 MG/ML VIAL IVP SCH ×3 (02:42→16:03)
[2021-09-21] MEDS: LACTATED RINGERS 1,000 ML IV SCH (02:42)
[2021-09-21 07:16] LABS: BASOPHILS # (AUTO) 0.1 10^3/uL (0.0-0.1); BASOPHILS % (AUTO) 0.4 %; EOSINOPHILS # (AUTO) 0.1 10^3/uL (0.0-0.7); EOSINOPHILS % (AUTO) 0.8 %; HCT - HEMATOCRIT 25.5 % (37.0-47.0); HGB - HEMOGLOBIN 8.1 g/dL (12.0-16.0); LYMPHOCYTES # (AUTO) 1.8 10^3/uL (1.5-3.5); MEAN CORPUSCULAR HEMOGLOBIN 26.7 pg (27.0-31.0); MEAN CORPUSCULAR HGB CONC 31.8 g/dL (32.0-36.0); MEAN CORPUSCULAR VOLUME 84.2 fL (81.0-99.0); MEAN PLATELET VOLUME 9.5 fL (7.9-10.8); MONOCYTES # (AUTO) 0.9 10^3/uL (0.0-1.0); MONOCYTES % (AUTO) 5.3 %; NEUTROPHILS # (AUTO) 13.5 10^3/uL (1.5-6.6); NEUTROPHILS % (AUTO) 81.8 %; PLT - PLATELET COUNT 296 10^3/uL (130-450); RED BLOOD COUNT 3.03 10^6/uL (4.20-5.40); RED CELL DISTRIBUTION WIDTH 16.5 % (12.0-15.0); WHITE BLOOD COUNT 16.5 x10^3/uL (4.8-10.8)
[2021-09-21] MEDS: DOCUSATE SODIUM 100 MG CAPSULE PO SCH ×2 (09:53→21:45)
--- NOTE | 2021-09-21 10:46 | PROVIDER PROGRESS NOTE ---
Subjective - Prog Note Date Prog Note Date: 09/21/21 Prog Note Time: 10:15 - Subjective Subjective: Patient has no complaints. Her pain is controlled with pain medications. She reports minimal bleeding. Current Medications - Current Medications Current Medications: Active Medications Generic Name Dose Route Start Last Admin Trade Name Db PRN Reason Stop Dose Admin Acetaminophen 1,000 mg 09/20/21 21:00 09/21/21 10:50 Acetaminophen 500 Mg Tablet PO 1,000 mg Q8H PAZ Administration Carboprost Tromethamine 250 mcg 09/19/21 08:45 Carboprost Tromethamine 250 Mcg/Ml Amp IM 09/24/21 08:47 Q15M PRN Step 4: Hemorrhage protocol Diphenhydramine HCl 12.5 - 25 mg 09/19/21 20:35 09/20/21 02:15 Diphenhydramine Inj 50 Mg/Ml Vial IVP 12.5 mg Q6HR PRN Administration ITCHING Docusate Sodium 100 mg 09/20/21 21:00 09/21/21 09:53 Docusate Sodium 100 Mg Capsule PO 100 mg BID PAZ Administration Ferrous Sulfate 325 mg 09/21/21 11:00 09/21/21 10:55 Ferrous Sulfate 325 Mg Tablet PO 325 mg DAILYWM PAZ Administration Lactated Ringer's 1,000 mls @ 100 mls/hr 09/19/21 09:00 09/21/21 12:45 Lr IV Infused .Q10H PAZ Infusion Oxytocin/Sodium Chloride 500 mls @ 999 mls/hr 09/19/21 08:45 Pitocin/Sodium Chloride IV 09/24/21 08:47 PRN PRN POST- HEMORR PREVENTION Protocol 999 MILLIUNIT/MIN Tranexamic Acid 1,000 mg in 100 mls @ 600 mls/hr 09/19/21 08:45 Tranexamic 1,000 Mg/100ml-Nacl IV 09/24/21 08:47 .ONCE PRN EBL >1200mL and within 3hr Oxytocin/Sodium Chloride 500 mls @ 2 mls/hr 09/19/21 16:00 09/19/21 16:24 Pitocin/Sodium Chloride IV 2 milliunit/min TITR PAZ 2 mls/hr Administration Protocol 2 MILLIUNIT/MIN Ropivacaine 200 mg in 100 mls @ 0 mls/hr 09/19/21 20:35 09/20/21 03:10 Naropin 0.2% EP 10 mls/hr PRN PRN Administration PAIN Protocol Per Protocol Lactated Ringer's 1,000 mls @ 100 mls/hr 09/20/21 21:00 Lr IV .Q10H PAZ Lidocaine HCl 30 ml 09/19/21 08:45 Lidocaine-Mpf 1% 30 Ml Vial ID 09/24/21 08:47 .ONCE PRN PERINEAL REPAIR Methylergonovine Maleate 0.2 mg 09/19/21 08:45 Methylergonovine 0.2 Mg/Ml Vial IM 09/24/21 08:47 .ONCE PRN Step 2: Hemorrhage protocol Misoprostol 800 mcg 09/19/21 08:45 Misoprostol 200 Mcg Tablet BC 09/24/21 08:47 .ONCE PRN Step 3: Hemorrhage protocol Morphine Sulfate 4 mg 09/20/21 20:22 Morphine 10 Mg/Ml Vial IVP Q4HR PRN Anesthesia Nalbuphine HCl 5 mg 09/19/21 09:53 Nalbuphine 10 Mg/Ml Amp IVP Q4HR PRN Labor Pain Nalbuphine HCl 2.5 - 5 mg 09/19/21 20:35 09/20/21 03:23 Nalbuphine 10 Mg/Ml Amp IVP 5 mg Q4H PRN Administration Severe Itching Ondansetron HCl 4 mg 09/19/21 20:35 09/20/21 11:23 Ondansetron 4 Mg/2 Ml Vial IVP 4 mg Q6HR PRN Administration Nausea / Vomiting Oxycodone HCl 5 mg 09/20/21 20:09 09/21/21 10:50 Oxycodone 5 Mg Tablet PO 5 mg Q4HR PRN Administration PAIN Oxytocin 10 unit 09/19/21 08:45 Oxytocin 10 Unit/Ml Vial IM 09/24/21 08:47 .ONCE PRN Step one: If no IV access Sodium Chloride 10 ml 09/19/21 09:00 09/20/21 02:15 Sodium Chloride Flush 0.9% 10 Ml Syringe IVP 10 ml 0100,0900,1700 PAZ Administration Sodium Chloride 10 ml 09/19/21 08:45 09/19/21 16:21 Sodium Chloride Flush 0.9% 10 Ml Syringe IVP 10 ml PRN PRN Administration NEEDED PER PROVIDER ORDERS Sodium Chloride 10 ml 09/20/21 20:09 Sodium Chloride Flush 0.9% 10 Ml Syringe IVP PRN PRN NEEDED PER PROVIDER ORDERS Sodium Chloride 10 ml 09/21/21 01:00 Sodium Chloride Flush 0.9% 10 Ml Syringe IVP 0100,0900,1700 PAZ No Known Home Medications 06/14/13 Objective - Vital Signs/Intake & Output Reviewed Vital Signs: Yes Vital Signs: Vital Signs x48h Temp Pulse Resp BP Pulse Ox 09/21/21 05:30 98.4 F 82 16 118/85 H 98 Intake & Output: Intake & Output 09/18/21 09/19/21 09/20/21 09/21/21 23:59 23:59 23:59 23:59 Intake Total 7017.137 8110.334 Output Total 1300 340 Balance 4904.858 1116.334 -340 - Objective General Appearance: positive: No acute distress, Alert Abdomen: positive: Tenderness (Appropriate for postoperative state), Rebound. negative: Guarding - Lab Results Fish Bones: 09/21/21 06:57 09/19/21 09:30 Other Labs: Lab Results x24hrs 09/21/21 Range/Units 06:57 WBC 16.5 H (4.8-10.8) x10^3/uL RBC 3.03 L (4.20-5.40) 10^6/uL Hgb 8.1 L (12.0-16.0) g/dL Hct 25.5 L (37.0-47.0) % MCV 84.2 (81.0-99.0) fL MCH 26.7 L (27.0-31.0) pg MCHC 31.8 L (32.0-36.0) g/dL RDW 16.5 H (12.0-15.0) % Plt Count 296 (130-450) 10^3/uL MPV 9.5 (7.9-10.8) fL Neut # (Auto) 13.5 H (1.5-6.6) 10^3/uL Lymph # (Auto) 1.8 (1.5-3.5) 10^3/uL [place] # (Auto) 0.9 (0.0-1.0) 10^3/uL Eos # (Auto) 0.1 (0.0-0.7) 10^3/uL Baso # (Auto) 0.1 (0.0-0.1) 10^3/uL Absolute Nucleated RBC 0.00 x10^3/uL Nucleated RBC % 0.0 /100WBC Assessment/Plan - Assessment/Plan Plan: 21-year-old G2, P1 day 1 Status post primary section. #Status post sectionhemoglobin noted to drop to 8 this morning from 10 preop, Asymptomatic. Vital signs within normal limits. Will start iron. Pain well controlled on pain medications. Meeting postoperative milestones. #Gestational hypertensionblood pressures normal to mild range, no preeclampsia symptoms.
[2021-09-21] MEDS: oxyCODONE 5 MG TABLET PO PRN ×2 (10:50→21:45)
[2021-09-21] MEDS: FERROUS SULFATE 325 MG TABLET PO SCH (10:55)
[2021-09-21] MEDS: IBUPROFEN 600 MG TABLET PO SCH (22:26)
[2021-09-22] MEDS: oxyCODONE 5 MG TABLET PO PRN ×3 (02:13→16:40)
[2021-09-22] MEDS: ACETAMINOPHEN 500 MG TABLET PO SCH ×3 (02:22→19:53)
[2021-09-22] MEDS: IBUPROFEN 600 MG TABLET PO SCH ×4 (04:33→23:37)
[2021-09-22] MEDS: FERROUS SULFATE 325 MG TABLET PO SCH (08:05)
[2021-09-22] MEDS: DOCUSATE SODIUM 100 MG CAPSULE PO SCH ×2 (08:05→21:06)
[2021-09-22] MEDS: SIMETHICONE CHEW 80 MG TABLET PO PRN ×2 (11:01→21:41)
--- NOTE | 2021-09-22 12:02 | PROVIDER PROGRESS NOTE ---
Subjective - General Admit Date: 09/19/21 Procedure Date: 09/20/21 Post Op Days: 2 - Review of Systems Wound/Incisions: positive: Healing well General: positive: No symptoms HEENT: positive: No symptoms Pulmonary: positive: No symptoms Cardiovascular: positive: No symptoms Gastrointestinal: positive: Flatus Genitourinary: positive: No symptoms. negative: Dysuria Musculoskeletal: positive: No symptoms Skin: positive: No symptoms - Other Other Information/Narrative: 21yo S/POD #2 Primary Low Transverse Section is doing well. Patient is currently breast feeding. Patient is tolerating a regular diet. Patient has passed flatus. Patient is ambulating and urinating without difficulty. Pain is well controlled. Objective - Patient Data Vital Signs: Vital Signs x48h Temp Pulse Resp BP Pulse Ox 09/22/21 09:05 98.6 F 86 18 127/78 97 Intake & Output: Intake and Output Totals x24h 09/20/21 09/21/21 09/22/21 23:59 23:59 23:59 Intake Total 2563.334 1075 250 Output Total 1300 990 475 Balance 1263.334 85 -225 - Lab Results Lab Results: 09/21/21 06:57 09/19/21 09:30 - Current Medications Current Medications: Current Medications Generic Name Dose Route Start Last Admin Trade Name Freq PRN Reason Stop Dose Admin Acetaminophen 1,000 mg 09/20/21 21:00 09/22/21 11:01 Acetaminophen 500 Mg Tablet PO 1,000 mg Q8H PAZ Administration Diphenhydramine HCl 12.5 - 25 mg 09/19/21 20:35 09/20/21 02:15 Diphenhydramine Inj 50 Mg/Ml Vial IVP 12.5 mg Q6HR PRN Administration ITCHING Docusate Sodium 100 mg 09/20/21 21:00 09/22/21 08:05 Docusate Sodium 100 Mg Capsule PO 100 mg BID PAZ Administration Lactated Ringer's 1,000 mls @ 100 mls/hr 09/19/21 09:00 09/21/21 12:45 Lr IV Infused .Q10H PAZ Infusion Oxytocin/Sodium Chloride 500 mls @ 2 mls/hr 09/19/21 16:00 09/19/21 16:24 Pitocin/Sodium Chloride IV 2 milliunit/min TITR PAZ 2 mls/hr Administration Protocol 2 MILLIUNIT/MIN Ropivacaine 200 mg in 100 mls @ 0 mls/hr 09/19/21 20:35 09/20/21 03:10 Naropin 0.2% EP 10 mls/hr PRN PRN Administration PAIN Protocol Per Protocol Ibuprofen 600 mg 09/21/21 22:00 09/22/21 11:01 Ibuprofen 600 Mg Tablet PO 600 mg Q6H PAZ Administration Nalbuphine HCl 2.5 - 5 mg 09/19/21 20:35 09/20/21 03:23 Nalbuphine 10 Mg/Ml Amp IVP 5 mg Q4H PRN Administration Severe Itching Ondansetron HCl 4 mg 09/19/21 20:35 09/20/21 11:23 Ondansetron 4 Mg/2 Ml Vial IVP 4 mg Q6HR PRN Administration Nausea / Vomiting Oxycodone HCl 5 mg 09/20/21 20:09 09/22/21 08:05 Oxycodone 5 Mg Tablet PO 5 mg Q4HR PRN Administration PAIN Simethicone 80 mg 09/22/21 09:25 09/22/21 11:01 Simethicone Chew 80 Mg Tablet PO 80 mg TID PRN Administration Gas Sodium Chloride 10 ml 09/19/21 09:00 09/20/21 02:15 Sodium Chloride Flush 0.9% 10 Ml Syringe IVP 10 ml 0100,0900,1700 PAZ Administration Sodium Chloride 10 ml 09/19/21 08:45 09/19/21 16:21 Sodium Chloride Flush 0.9% 10 Ml Syringe IVP 10 ml PRN PRN Administration NEEDED PER PROVIDER ORDERS - Physical Exam Wound/Incisions: positive: Dressing dry and intact General Appearance: positive: Mild distress Eyes Bilateral: positive: Normal inspection Cardiovascular: positive: Regular rate & rhythm, No murmur, No gallop Abdomen: positive: Nml bowel sounds. negative: Guarding, Rebound Skin: positive: Color nml Extremities: positive: Nml appearance, No pedal edema. negative: Calf tenderness Neurologic/Psychiatric: positive: Oriented x3, Mood/affect nml Impression/Plan - Problem List Problem List: POD#2 Primary Low Transverse Section. Breast feeding. Continue routine post-operative orders.
[2021-09-23] MEDS: ACETAMINOPHEN 500 MG TABLET PO SCH ×3 (04:15→19:55)
[2021-09-23] MEDS: IBUPROFEN 600 MG TABLET PO SCH ×4 (05:59→22:40)
[2021-09-23] MEDS: DOCUSATE SODIUM 100 MG CAPSULE PO SCH ×2 (08:02→21:03)
[2021-09-23] MEDS: SIMETHICONE CHEW 80 MG TABLET PO PRN ×2 (08:02→11:44)
[2021-09-23] MEDS: oxyCODONE 5 MG TABLET PO PRN ×3 (08:03→20:26)
--- NOTE | 2021-09-23 11:08 | PROVIDER PROGRESS NOTE ---
Subjective - General Admit Date: 09/19/21 Procedure Date: 09/20/21 Post Op Days: 3 - Review of Systems Wound/Incisions: positive: Healing well, No drainage HEENT: positive: No symptoms Pulmonary: positive: No symptoms Cardiovascular: positive: No symptoms Gastrointestinal: positive: Flatus Genitourinary: positive: No symptoms. negative: Dysuria Musculoskeletal: positive: No symptoms Skin: positive: No symptoms Objective - Patient Data Vital Signs: Vital Signs x48h Temp Pulse Pulse Resp BP Pulse Ox 09/23/21 08:47 98.2 F 79 17 134/86 H 99 09/23/21 04:20 98.8 F 85 22 125/84 H 98 Intake & Output: Intake and Output Totals x24h 09/21/21 09/22/21 09/23/21 23:59 23:59 23:59 Intake Total 1075 250 Output Total 990 475 Balance 85 -225 - Lab Results Lab Results: 09/21/21 06:57 09/19/21 09:30 Other Lab Results: Lab Results x24hrs 09/20/21 09/20/21 09/20/21 Range/Units 12:29 08:23 04:07 POC Whole Bld Glucose 111 H 76 74 (70 - 100) mg/dL 09/20/21 09/19/21 09/19/21 Range/Units 00:02 19:44 16:15 POC Whole Bld Glucose 91 113 H 111 H (70 - 100) mg/dL 09/19/21 Range/Units 11:53 POC Whole Bld Glucose 96 (70 - 100) mg/dL - Current Medications Current Medications: Current Medications Generic Name Dose Route Start Last Admin Trade Name Freq PRN Reason Stop Dose Admin Acetaminophen 1,000 mg 09/20/21 21:00 09/23/21 04:15 Acetaminophen 500 Mg Tablet PO 1,000 mg Q8H PAZ Administration Diphenhydramine HCl 12.5 - 25 mg 09/19/21 20:35 09/20/21 02:15 Diphenhydramine Inj 50 Mg/Ml Vial IVP 12.5 mg Q6HR PRN Administration ITCHING Docusate Sodium 100 mg 09/20/21 21:00 09/23/21 08:02 Docusate Sodium 100 Mg Capsule PO 100 mg BID PAZ Administration Lactated Ringer's 1,000 mls @ 100 mls/hr 09/19/21 09:00 09/21/21 12:45 Lr IV Infused .Q10H PAZ Infusion Oxytocin/Sodium Chloride 500 mls @ 2 mls/hr 09/19/21 16:00 09/19/21 16:24 Pitocin/Sodium Chloride IV 2 milliunit/min TITR PAZ 2 mls/hr Administration Protocol 2 MILLIUNIT/MIN Ropivacaine 200 mg in 100 mls @ 0 mls/hr 09/19/21 20:35 09/20/21 03:10 Naropin 0.2% EP 10 mls/hr PRN PRN Administration PAIN Protocol Per Protocol Ibuprofen 600 mg 09/21/21 22:00 09/23/21 08:02 Ibuprofen 600 Mg Tablet PO 600 mg Q6H PAZ Administration Nalbuphine HCl 2.5 - 5 mg 09/19/21 20:35 09/20/21 03:23 Nalbuphine 10 Mg/Ml Amp IVP 5 mg Q4H PRN Administration Severe Itching Ondansetron HCl 4 mg 09/19/21 20:35 09/20/21 11:23 Ondansetron 4 Mg/2 Ml Vial IVP 4 mg Q6HR PRN Administration Nausea / Vomiting Oxycodone HCl 5 mg 09/20/21 20:09 09/23/21 08:03 Oxycodone 5 Mg Tablet PO 5 mg Q4HR PRN Administration PAIN Simethicone 80 mg 09/22/21 09:25 09/23/21 08:02 Simethicone Chew 80 Mg Tablet PO 80 mg TID PRN Administration Gas Sodium Chloride 10 ml 09/19/21 09:00 09/20/21 02:15 Sodium Chloride Flush 0.9% 10 Ml Syringe IVP 10 ml 0100,0900,1700 PAZ Administration Sodium Chloride 10 ml 09/19/21 08:45 09/19/21 16:21 Sodium Chloride Flush 0.9% 10 Ml Syringe IVP 10 ml PRN PRN Administration NEEDED PER PROVIDER ORDERS - Physical Exam Wound/Incisions: positive: Healing well General Appearance: positive: No acute distress Respiratory: positive: Breath sounds nml. negative: Wheezes, Rales Cardiovascular: positive: Regular rate & rhythm, No murmur, No gallop Abdomen: positive: Non-tender, Nml bowel sounds, Other (Incision is clean, dry and intact.). negative: Guarding, Rebound Skin: positive: Color nml Extremities: positive: Non-tender. negative: No pedal edema, Calf tenderness Neurologic/Psychiatric: positive: Mood/affect nml Comments/Other: 21yo POD#3 Primary LTCS doing well. Patient is ambulating, urinating and tolerating a regular diet. Patient is having some issues with breast feeding, h olding etc, but is much better than yesterday. Pain is well controlled. Patient is having flatus and no bowel movement. Discussed keeping her until tomorrow if power in [place] does not come back on by this evening. Patient lives in [place] and the power has been out since yesterday afternoon. A-POD#3 Primary LTCS, doing well except could use more continued instruction/help with breast feeding. P- Consider discharge later this afternoon if power is restored. Otherwise, will discharge tomorrow morning.
[2021-09-24] MEDS: ACETAMINOPHEN 500 MG TABLET PO SCH ×2 (04:10→11:48)
[2021-09-24] MEDS: IBUPROFEN 600 MG TABLET PO SCH ×2 (04:12→09:39)
[2021-09-24] MEDS: DOCUSATE SODIUM 100 MG CAPSULE PO SCH (09:39)
[2021-09-24] MEDS: SIMETHICONE CHEW 80 MG TABLET PO PRN (09:39)
[2021-09-24 11:52] VITALS: BP 134/87
--- NOTE | 2021-09-24 13:54 | DISCHARGE SUMMARY ---
"Discharge Summary Admit Date: 09/19/21 Discharge Date: 09/24/21 Discharging Provider: Abhijit Joy DO Condition at Discharge: Good Discharge Disposition: 01 Home, Self Care - DIAGNOSES Admission Diagnoses: IUP 37 0/7 with Cholestasis of Discharge Diagnoses with Status of Each Condition: S/P Primary Low Transverse Section for failure to progress and distress. - HPI History of Present Illness: 21yo at 37 0/7 was admitted for induction of labor due to Cholestasis of on 09/19/21. Patient progressed in labor and had epidural anesthesia palced. Patient had heart rate decelerations and it was decided to perform a Section. Adequate Anesthesia could not be obtained through epidural or spinal so patient was given General Anesthesia for Section. - CONSULTS | PROCEDURES Procedures: Primary Low Transverse Section - HOSPITAL COURSE Hospital Course: Patient was admitted on 09/19/21 and started induction of labor due to Cholestasis of . Patient had urgen Section on Wednesday09/20/21 for failure to progress and distress. Patient had general anesthesia due to failure of epdural or spinal to provide adequate anesthesia. Patient tolerated procedure well and has had routine post-operative course. Patient was kept on post-operative day 3 for one more day to assist in better breast feeding skills. Patient is being discharged on post op day 4. - ALLERGIES Allergies/Adverse Reactions: Allergies Allergy/AdvReac Type Severity Reaction Status Date / Time No Known Drug Allergies Allergy Verified 01/29/16 19:15 - MEDICATIONS Home Medications: Ambulatory Orders Medication Instructions Recorded Confirmed No Known Home Medications 06/14/13 01/29/16 - PHYSICAL EXAM AT DISCHARGE General Appearance: positive: No acute distress Cardiovascular: positive: Regular rate & rhythm, No murmur, No gallop Abdomen: positive: Nml bowel sounds, Other (Incision is clean, dry and intact with rommel in place. No erythema or drainage.). negative: Guarding, Rebound Extremities: positive: Nml appearance, No pedal edema. negative: Calf tenderness Neurologic/Psychiatric: positive: Oriented x3, Mood/affect nml Reflexes: Knee (R): 2+ - LABS Result Diagrams: 09/21/21 06:57 09/19/21 09:30 - FOLLOW UP Follow Up: Patient will follow-up in clinic with Dr. Guzmán tomorrow for staple removal. Patient will return to clinic in one week for post-operative appointment. - TIME SPENT Time Spent in Discharge (Minutes): 30"
--- NOTE | 2021-09-24 14:02 | Discharge Plan ---
Discharge Plan Problem Reviewed?: Yes Disposition: Home, Self Care Condition: Good Prescriptions: oxyCODONE [Roxicodone] 5 mg PO Q6HR PRN 5 Days #20 tablet PRN Reason: Pain Ibuprofen [Motrin] 600 mg PO Q6H PRN #40 tablet MDD 2400mg PRN Reason: Pain Diet: Regular Activity Restrictions: Additional Comments (No driving until she can slam on her brakes and is not taking narcotic pain medication. No lifting more than 10 pounds other than in infant carrier.) Shower Restrictions: No Driving Restrictions: Yes (No driving until she can slam on brakes and is not on Narcotic pain meds.) Weight Bearing: Full Weight No Smoking: If you smoke, Please STOP! Call for help. Follow-up with: Isaac Guzmán MD [Provider Admit Priv/Credential] -
== END 2021-09-24 14:00 | disposition home or self-care (01) | DRG 786 ==
LOC: WFO 07:45 → FBP 07:45 → WFO 08:43 → FBP 08:45
PROVIDERS: ADMIT Obstetrics & Gynecology; ATTEND Obstetrics & Gynecology
PROC: 0U7C7ZZ Dilation of Cervix, Via Natural or Artificial Opening (ICD-10-PCS; principal; 2021-09-19)
PROC: 3E033VJ Introduction of Other Hormone into Peripheral Vein, Percutaneous Approach (ICD-10-PCS; 2021-09-19)
PROC: 10D00Z1 Extraction of Products of Conception, Low, Open Approach (ICD-10-PCS; 2021-09-20)
PROC: 10907ZC Drainage of Amniotic Fluid, Therapeutic from Products of Conception, Via Natural or Artificial Opening (ICD-10-PCS; 2021-09-20)
DX: O26.62 Liver and biliary tract disorders in childbirth (principal); K83.1 Obstruction of bile duct; O98.32 Other infections with a predominantly sexual mode of transmission complicating childbirth; O13.4 Gestational [pregnancy-induced] hypertension without significant proteinuria, complicating childbirth; O24.429 Gestational diabetes mellitus in childbirth, unspecified control; O76 Abnormality in fetal heart rate and rhythm complicating labor and delivery; Z3A.37 37 weeks gestation of pregnancy; Z37.0 Single live birth; O77.0 Labor and delivery complicated by meconium in amniotic fluid; Z79.899 Other long term (current) drug therapy; A60.09 Herpesviral infection of other urogenital tract; O74.8 Other complications of anesthesia during labor and delivery; I95.2 Hypotension due to drugs; O62.4 Hypertonic, incoordinate, and prolonged uterine contractions
CPT/HCPCS: 36415; 80053; 82570; 84156; 85025; 86850; 86900; 86901; A9270; J0330; J1170; J1200; J2274; J2300; J7120